=== PATIENT | male | born 1995 | race American Indian/Alaskan Native ===

== ENCOUNTER 2017-12-25 01:58 | Emergency (ER) | payer SELFPAY ==
[2017-12-25 02:05] VITALS: BP 126/69
[2017-12-25] MEDS ORDERED: LIDOCAINE VISCOUS 2% ONE (02:46)
[2017-12-25] MEDS ORDERED: LIDOCAINE VISCOUS 2% PO ONE (02:47)
--- NOTE | 2017-12-25 03:23 | Emergency Department Report ---
ED General Adult HPI - General Chief complaint: Skin/Abscess/Foreign Body Stated complaint: BOIL Time Seen by Provider: 12/25/17 02:42 Source: patient Mode of arrival: Ambulatory Limitations: No Limitations - History of Present Illness Initial comments: pt is a 22 y/o aam with hx of hemorrhoids who presents for external hemorrhoid pain x 3 weeks, pain is 4/10 itching burning no bleeding no diarrhea no n/v no fever or chills Onset/Timin -: week(s) Location: buttocks Radiation: non-radiation Severity scale (0 -10): 4 Quality: burning, other (itching ) Consistency: intermittent Improves with: other (nothing tried ) Worsens with: other (scratching ) Associated Symptoms: denies: diaphoresis, fever/chills, nausea/vomiting, rash, weakness Treatments Prior to Arrival: none - Related Data Previous Rx's Medication Instructions Recorded Last Taken Type Hydrocort/Pramoxine (Nf) [Analpram 1 applicatio HI BID 14 Days #1 tube 12/25/17 Unknown Rx Hc 2.5/1%] Allergies Allergy/AdvReac Type Severity Reaction Status Date / Time No Known Allergies Allergy Verified 12/25/17 02:05 ED Review of Systems ROS: Stated complaint: BOIL Other details as noted in HPI Constitutional: denies: chills, fever Eyes: denies: eye pain, eye discharge, vision change ENT: denies: ear pain, throat pain Respiratory: denies: cough, shortness of breath, wheezing Cardiovascular: denies: chest pain, palpitations Endocrine: no symptoms reported Gastrointestinal: denies: abdominal pain, nausea, vomiting, diarrhea, constipation, hematemesis, melena, hematochezia Genitourinary: denies: urgency, dysuria Musculoskeletal: denies: back pain, joint swelling, arthralgia Skin: denies: rash, lesions Neurological: denies: headache, weakness, paresthesias Psychiatric: as per HPI Hematological/Lymphatic: denies: easy bleeding, easy bruising ED Past Medical Hx - Past Medical History Previous Medical History?: Yes Hx Asthma: Yes - Surgical History Past Surgical History?: Yes Additional Surgical History: boil removal, Hemorrhoids - Social History Smoking Status: Never Smoker Substance Use Type: None - Medications Home Medications: Home Medications Medication Instructions Recorded Confirmed Last Taken Type Hydrocort/Pramoxine (Nf) [Analpram 1 applicatio HI BID 14 Days #1 tube 12/25/17 Unknown Rx Hc 2.5/1%] ED Physical Exam - General Limitations: No Limitations General appearance: alert, in no apparent distress - Head Head exam: Present: atraumatic, normocephalic - Eye Eye exam: Present: normal appearance - ENT ENT exam: Present: mucous membranes moist - Neck Neck exam: Present: normal inspection - Respiratory Respiratory exam: Present: normal lung sounds bilaterally. Absent: respiratory distress - Cardiovascular Cardiovascular Exam: Present: regular rate, normal rhythm. Absent: systolic murmur, diastolic murmur, rubs, gallop - GI/Abdominal GI/Abdominal exam: Present: soft, normal bowel sounds - Rectal Rectal exam: Present: normal rectal tone, hemorrhoids (external nonthrombosed ) , tenderness, normal prostate. Absent: heme (-) stool, black stool, bloody stool, fecal impaction, mass, prostate tenderness, prostate enlargement - exam: Present: normal inspection External exam: Present: normal external exam - Extremities Exam Extremities exam: Present: normal inspection, full ROM, normal capillary refill , calf tenderness. Absent: tenderness, pedal edema, joint swelling - Back Exam Back exam: Present: normal inspection, full ROM - Neurological Exam Neurological exam: Present: alert, oriented X3, CN II-XII intact, normal gait, reflexes normal - Psychiatric Psychiatric exam: Present: normal affect, normal mood - Skin Skin exam: Present: warm, dry, intact, normal color. Absent: rash ED Course Vital Signs 12/25/17 12/25/17 01:55 01:59 Temperature 98.4 F 98.6 F Pulse Rate 73 76 Respiratory 18 16 Rate Blood Pressure 126/69 126/69 O2 Sat by Pulse 99 99 Oximetry ED Medical Decision Making - Medical Decision Making external hemorrhoids noted to exam , no bleeding normal internal hemorrhoids to exam normal prostate, no n/v no diarrhea, plan: proctofoam follow up with pcp in 2-3 days pt verbalized agreement and understanding of same. Critical care attestation.: If time is entered above; I have spent that time in minutes in the direct care of this critically ill patient, excluding procedure time. ED Disposition Clinical Impression: Hemorrhoids, external without complications Disposition: - TO HOME OR SELFCARE Is pt being admited?: No Does the pt Need Aspirin: No Condition: Good Instructions: Hemorrhoids (ED) Prescriptions: Hydrocort/Pramoxine (Nf) [Analpram Hc 2.5/1%] 1 applicatio HI BID 14 Days #1 tube Referrals: PRIMARY CARE,MD [Primary Care Provider] - 3-5 Days Forms: Work/School Release Form(ED)
== END 2017-12-25 03:35 | disposition home or self-care (01) ==
LOC: ED 01:58
DX: K64.4 Residual hemorrhoidal skin tags (principal); J45.909 Unspecified asthma, uncomplicated
CPT/HCPCS: 99283

== ENCOUNTER 2018-01-03 02:04 | Emergency (ER) | payer SELFPAY ==
[2018-01-03] MEDS ORDERED: NACL 0.9% 1000 ML 1,000 ML IV ONE (02:20)
[2018-01-03 02:38] LABS: Basophils % (Auto) 0.6 % (0.0-1.8); Eosinophils # (Auto) 0.1 K/mm3 (0.0-0.4); Eosinophils % (Auto) 1.1 % (0.0-4.3); Hematocrit 43.5 % (35.5-45.6); Hemoglobin 14.4 gm/dl (11.8-15.2); Lymphocytes # (Auto) 3.6 K/mm3 (1.2-5.4); Lymphocytes % (Auto) 47.5 % (13.4-35.0); Mean Corpuscular HGB Conc 33 % (32-34); Mean Corpuscular Hemoglobin 29 pg (28-32); Mean Corpuscular Volume 86 fl (84-94); Monocytes # (Auto) 0.6 K/mm3 (0.0-0.8); Monocytes % (Auto) 7.4 % (0.0-7.3); Platelet Count 302 K/mm3 (140-440); Red Blood Count 5.04 M/mm3 (3.65-5.03); Red Cell Distribution Width 14.7 % (13.2-15.2)
[2018-01-03 02:49] LABS: INR 1.08 (0.87-1.13)
[2018-01-03 02:50] LABS: Partial Thromboplastin Time 31.8 Sec. (24.2-36.6)
[2018-01-03 02:53] LABS: Alanine Aminotransferase 9 units/L (7-56); Albumin 4.3 g/dL (3.9-5); BUN/Creatinine Ratio 8; Blood Urea Nitrogen 5 mg/dL (9-20); Calcium 9.5 mg/dL (8.4-10.2); Hemolysis Index 7; Lipase 14 units/L (13-60)
[2018-01-03] MEDS ORDERED: PROTONIX IV ONE (06:41)
[2018-01-03] MEDS ORDERED: ZOFRAN IV ONE (06:45)
--- NOTE | 2018-01-03 06:45 | Emergency Department Report ---
ED GI Bleed HPI - General Chief complaint: GI Bleed Stated complaint: ABD PAIN Time Seen by Provider: 01/03/18 06:35 Source: patient Mode of arrival: Ambulatory Limitations: No Limitations - History of Present Illness Initial comments: Patient is 22 years old male with history of asthma. Patient presented to the ER complaining ONE episode of vomiting blood. Patient also complaining of epigastric pain, burning sensation. Patient denied any hematochezia or melena. Patient denied any fever or diarrhea. MD complaint: gross hematemesis -: Sudden Location: epigastric Radiation: none Severity scale (0 -10): 7 Quality: burning Consistency: intermittent Improves with: none Worsens with: none Associated Symptoms: denies: epistaxis, fever/chills, headaches, loss of appetite, malaise, easy bruising, rash, other bleeding, shortness of breath, syncope, weakness - Related Data Previous Rx's Medication Instructions Recorded Last Taken Type Hydrocort/Pramoxine (Nf) [Analpram 1 applicatio RI BID 14 Days #1 tube 12/25/17 Unknown Rx Hc 2.5/1%] Allergies Allergy/AdvReac Type Severity Reaction Status Date / Time No Known Allergies Allergy Verified 12/25/17 02:05 ED Review of Systems ROS: Stated complaint: ABD PAIN Other details as noted in HPI Comment: All other systems reviewed and negative Constitutional: denies: chills, fever Respiratory: denies: cough, orthopnea, shortness of breath, SOB with exertion, SOB at rest, wheezing Cardiovascular: denies: chest pain, palpitations Gastrointestinal: abdominal pain, nausea, vomiting. denies: diarrhea, constipation, hematemesis, melena, hematochezia Genitourinary: denies: urgency, dysuria, frequency Neurological: denies: headache, weakness, numbness, paresthesias ED Past Medical Hx - Past Medical History Previous Medical History?: Yes Hx Asthma: Yes - Surgical History Past Surgical History?: No Additional Surgical History: boil removal, Hemorrhoids - Social History Smoking Status: Never Smoker Substance Use Type: None - Medications Home Medications: Home Medications Medication Instructions Recorded Confirmed Last Taken Type Hydrocort/Pramoxine (Nf) [Analpram 1 applicatio RI BID 14 Days #1 tube 12/25/17 Unknown Rx Hc 2.5/1%] ED Physical Exam - General Limitations: No Limitations General appearance: alert, in no apparent distress - Head Head exam: Present: atraumatic - Eye Eye exam: Present: normal appearance - ENT ENT exam: Present: normal exam, normal orophraynx, mucous membranes moist - Neck Neck exam: Present: normal inspection, full ROM. Absent: tenderness, meningismus, lymphadenopathy, thyromegaly - Respiratory Respiratory exam: Present: normal lung sounds bilaterally. Absent: respiratory distress, wheezes, rales, rhonchi, accessory muscle use, decreased breath sounds , prolonged expiratory - Cardiovascular Cardiovascular Exam: Present: regular rate, normal rhythm, normal heart sounds - GI/Abdominal GI/Abdominal exam: Present: soft, normal bowel sounds. Absent: distended, tenderness, guarding, rebound, rigid, organomegaly, mass, bruit, pulsatile mass , hernia - Extremities Exam Extremities exam: Present: normal inspection, full ROM, normal capillary refill - Back Exam Back exam: Present: normal inspection, full ROM. Absent: CVA tenderness (R), CVA tenderness (L), muscle spasm, paraspinal tenderness, vertebral tenderness, rash noted - Neurological Exam Neurological exam: Present: alert, oriented X3, CN II-XII intact, normal gait, reflexes normal - Skin Skin exam: Present: warm, intact, normal color ED Course Vital Signs 01/03/18 01/03/18 01/03/18 02:16 06:20 06:30 Temperature 98.2 F 98.0 F Pulse Rate 65 56 L Respiratory 16 16 Rate Blood Pressure 133/69 124/72 Blood Pressure 124/72 [Left] O2 Sat by Pulse 100 99 100 Oximetry 01/03/18 07:00 Temperature Pulse Rate Respiratory Rate Blood Pressure 120/60 Blood Pressure [Left] O2 Sat by Pulse 95 Oximetry - Reevaluation(s) Reevaluation #1: 01/03/18 09:02 Patient is sleeping comfortably in no acute distress. Patient stated that he feels much better. No more vomiting. Patient hemoglobin is stable. He received 1 L of normal saline. I advised the patient to follow-up with a GI doctor for possible endoscopy. I also advised him to return to the ER if his symptoms are not improving. ED Medical Decision Making - Lab Data Result diagrams: 01/03/18 07:24 01/03/18 02:23 Critical care attestation.: If time is entered above; I have spent that time in minutes in the direct care of this critically ill patient, excluding procedure time. ED Disposition Clinical Impression: GI bleed, Peptic ulcer Disposition: DC-01 TO HOME OR SELFCARE Is pt being admited?: No Condition: Stable Instructions: Gastrointestinal Bleeding (ED), Peptic Ulcer (ED) Referrals: PRIMARY CARE, [Primary Care Provider] - 3-5 Days Forms: Accompanied Note
[2018-01-03 07:51] LABS: Hematocrit 40.2 % (35.5-45.6); Hemoglobin 13.3 gm/dl (11.8-15.2)
[2018-01-03 09:40] VITALS: BP 116/59
== END 2018-01-03 09:40 | disposition home or self-care (01) ==
LOC: ED 02:04
DX: K92.2 Gastrointestinal hemorrhage, unspecified (principal); J45.909 Unspecified asthma, uncomplicated
CPT/HCPCS: 36415; 80053; 83690; 85014; 85018; 85025; 85610; 85730; 86850; 86900; 86901; 96361; 96374; 96375; 99284; C9113; J2405; J7030